=== PATIENT | male | born 1980 | race Caucasian/White ===

== ENCOUNTER 2019-09-26 09:31 | Emergency (ER) | payer OTHER, BC ==
--- NOTE | 2019-09-26 11:12 | EDM.PDOC ---
ED HPI GENERAL MEDICAL PROBLEM - General Chief Complaint: Back Pain or Injury Stated Complaint: BACK PAIN Time Seen by Provider: 09/26/19 10:52 Source of Information: Reports: Patient History Limitations: Reports: No Limitations - History of Present Illness INITIAL COMMENTS - FREE TEXT/NARRATIVE: This 39 year old male is admitted to the ED with a chief complaint of lower right back pain with pain into his right buttock. He denies pain into his legs. He states that this started about three days ago. He has taken OTC medications but is not helping. He has tried ice and heat without help. Duration: Day(s): (three days) Location: Reports: Back (lower back with pain into right buttock) Quality: Reports: Dull, Sharp (right lower back with pain into buttock) Severity: Moderate lower back Pain Score (Numeric/FACES): 7 - Related Data Allergies Allergy/AdvReac Type Severity Reaction Status Date / Time No Known Allergies Allergy Verified 09/26/19 10:18 Home Meds: Home Meds Ibuprofen [Motrin] 800 mg PO TID PRN 7 Days #21 tablet 09/26/19 [Rx] Methocarbamol [Robaxin-750] 750 mg PO TID PRN 10 Days #30 tablet 09/26/19 [Rx] PARoxetine [Paxil] PO DAILY 09/26/19 [History] buPROPion [Wellbutrin] PO DAILY 09/26/19 [History] Past Medical History Psychiatric History: Reports: ADD, Anxiety, Depression - Past Surgical History GI Surgical History: Reports: Cholecystectomy Social & Family History - Family History Family Medical History: Noncontributory Endocrine/Metabolic: Reports: Diabetes, Type I - Tobacco Use Smoking Status *Q: Current Every Day Smoker Years of Tobacco use: 30 Packs/Tins Daily: 1 - Recreational Drug Use Recreational Drug Use: No ED ROS GENERAL - Review of Systems Review Of Systems: See Below Constitutional: Reports: No Symptoms HEENT: Reports: No Symptoms Respiratory: Reports: No Symptoms Cardiovascular: Reports: No Symptoms Endocrine: Reports: No Symptoms GI/Abdominal: Reports: No Symptoms : Reports: No Symptoms Musculoskeletal: Reports: No Symptoms Skin: Reports: No Symptoms Neurological: Reports: Other (pain into right buttock) ED EXAM,LOWER BACK PAIN/INJURY - Physical Exam Exam: See Below Exam Limited By: No Limitations General Appearance: Alert, WD/WN, Mild Distress (complaining of right lower back pain with pain into his right buttock) Ears: Normal External Exam, Normal Canal, Hearing Grossly Normal, Normal TMs Nose: Normal Inspection, Normal Mucosa, No Blood Throat/Mouth: Normal Inspection, Normal Lips, Normal Teeth, Normal Gums, Normal Oropharynx, Normal Voice, No Airway Compromise Head: Atraumatic, Normocephalic Neck: Normal Inspection, Supple, Non-Tender, Full Range of Motion Respiratory/Chest: No Respiratory Distress, Lungs Clear, Normal Breath Sounds, No Accessory Muscle Use, Chest Non-Tender Cardiovascular: Normal Peripheral Pulses, Regular Rate, Rhythm, No Edema, No Gallop, No JVD, No Murmur, No Rub GI/Abdominal: Normal Bowel Sounds, Soft (but obese), Non-Tender, No Organomegaly , No Distention, No Abnormal Bruit, No Mass (Male) Exam: Deferred Rectal (Males) Exam: Deferred Back Exam: Normal Inspection, Decreased Range of Motion (in all planes with terminal pain in the region of L2-S1 just to the right of the midline) Extremities: Normal Inspection, Non-Tender, Other (Straight leg lift is positive at 40-45 degrees.). No: Joint Swelling, Leanne's Sign Neurological: Alert, Normal Mood/Affect, Normal Dorsiflexion, CN II-XII Intact, Normal Gait, Normal Reflexes, No Motor/Sensory Deficits, Oriented x 3, Straight Leg Raise (R) (positive at 40-45 degrees). No: Babinski, Straight Leg Raise (L) DTR - Lower Extremities: 2+: Knee (R), Ankle (R), Ankle (L), 3+: Knee (L) Skin Exam: Warm, Dry, Intact, Normal Color, No Rash Lymphatic: No Adenopathy Course - Vital Signs Text/Narrative:: I have reviewed the patients CT of the lumbar spine which is consistent with lumbar disc herniation at L4-L5. I discussed this with the patient. He will be discharged. He agrees with the discharge plan. Last Recorded V/S: Last Vital Signs Temp 97.2 F 09/26/19 10:16 Pulse 83 09/26/19 11:43 Resp 18 09/26/19 11:43 BP 143/79 H 09/26/19 11:43 Pulse Ox 98 09/26/19 11:43 - Orders/Labs/Meds Meds: Medications Discontinued Medications Generic Name Dose Route Start Last Admin Trade Name Evonne PRN Reason Stop Dose Admin Ibuprofen 800 mg 09/26/19 11:13 09/26/19 11:45 Motrin PO 09/26/19 11:14 800 mg ONETIME ONE Administration Orphenadrine Citrate 60 mg 09/26/19 11:13 09/26/19 11:45 Norflex IM 09/26/19 11:14 60 mg ONETIME ONE Administration Departure - Departure Time of Disposition: 13:04 Disposition: Home, Self-Care 01 Condition: Good Clinical Impression: Lumbar disc herniation with radiculopathy - Discharge Information *PRESCRIPTION DRUG MONITORING PROGRAM REVIEWED*: Yes *COPY OF PRESCRIPTION DRUG MONITORING REPORT IN PATIENT UMA: Yes Instructions: Lumbosacral Radiculopathy, Herniated Disk, [id number] Referrals: [facility] [Primary Care Provider] - Forms: ED Department Discharge, ED Return to Work/School Form Additional Instructions: Take all medications as directed. Follow up with your PCP in the next two days. Hot and cold compress over the next three days (30 minutes on and one hour off while awake). Follow up with an orthopedic surgeon in the next four to five days. You should have an MRI scheduled by either your PCP or the Ortho surgeon. Sleep on a firm mattress. Rest for the next 24 hours. No work for four days. Return to the ED if your condition gets worse or should you have any questions or concerns. The following information is given to patients seen in the emergency department who are being discharged to home. This information is to outline your options for follow-up care. We provide all patients seen in our emergency department with a follow-up referral. The need for follow-up, as well as the timing and circumstances, are variable depending upon the specifics of your emergency department visit. If you don't have a primary care physician on staff, we will provide you with a referral. We always advise you to contact your personal physician following an emergency department visit to inform them of the circumstance of the visit and for follow-up with them and/or the need for any referrals to a consulting specialist. The emergency department will also refer you to a specialist when appropriate. This referral assures that you have the opportunity for follow-up care with a specialist. All of these measure are taken in an effort to provide you with optimal care, which includes your follow-up. Under all circumstances we always encourage you to contact your private physician who remains a resource for coordinating your care. When calling for follow-up care, please make the office aware that this follow-up is from your recent emergency room visit. If for any reason you are refused follow-up, please contact the [facility] Emergency Department at and asked to speak to the emergency department charge nurse. Sepsis Event Note - Evaluation Sepsis Screening Result: No Definite Risk - Focused Exam Vital Signs: Vital Signs Temp Pulse Resp BP Pulse Ox 09/26/19 11:43 83 18 143/79 H 98 09/26/19 10:16 97.2 F 83 16 136/74 95 Date Exam was Performed: 09/26/19 Time Exam was Performed: 12:57
[2019-09-26] MEDS ORDERED: Ibuprofen 800 MG Tab PO ONE (11:13)
--- NOTE | 2019-09-26 12:05 | CT ---
CT lumbar spine Technique: Multiple axial sections were obtained from above the T11-T12 disc through the L5-S1 disc. Reconstructed sagittal and coronal images were obtained. Comparison: No prior lumbar spine imaging is available. Findings: T11-T12: Posterior disc space narrowing is seen. Posterior disc is preserved. No central canal stenosis or neural foraminal stenosis is seen. T12-L1: Posterior disc space narrowing is seen. Posterior disc is preserved. No central canal stenosis or neural foraminal stenosis is seen. L1-L2: Mild posterior disc space narrowing is seen. No central canal stenosis or neural foraminal stenosis is seen. L2-L3: Mild posterior disc space narrowing is seen. Posterior disc is preserved. No central canal stenosis or neural foraminal stenosis is seen. L3-L4: Mild posterior disc space narrowing is seen. Mild circumferential disc bulge is seen. Slight asymmetric bulge posteriorly to the right of midline is seen. No central canal stenosis or neural foraminal stenosis is seen. Mild degenerative apophyseal change is seen. Bilateral spondylitic defects are seen at this level without spondylolisthesis. L4-L5: Asymmetric broad-based disc protrusion is seen posteriorly which indents the anterior thecal sac. No central canal stenosis or neural foraminal stenosis is seen. L5-S1: Posterior spur and disc bulge is seen to the right of midline. Mild diffuse posterior disc bulge is also noted. Minimal degenerative apophyseal change. No central canal stenosis or neural foraminal stenosis is seen. Impression: 1. Asymmetric broad-based disc protrusion is seen to the midline which indents the anterior thecal sac at L4-L5. 2. Prominent bony spur and disc bulge seen at L5-S1 to the right of midline. 3. Bilateral spondylitic defects are seen at L3-L4 without spondylolisthesis. 4. Other degenerative change as noted above. Diagnostic code #3 Study was dictated in MDT
== END 2019-09-26 13:45 | disposition home or self-care (01) ==
LOC: MW.ED 09:31
DX: M51.16 Intervertebral disc disorders with radiculopathy, lumbar region (principal); F41.9 Anxiety disorder, unspecified; F32.9 Major depressive disorder, single episode, unspecified; F17.210 Nicotine dependence, cigarettes, uncomplicated; Z90.49 Acquired absence of other specified parts of digestive tract; Z79.899 Other long term (current) drug therapy
CPT/HCPCS: 72131; 96372; 99283; A9270; J2360